=== PATIENT | female | born 1940 | race Caucasian/White ===

== ENCOUNTER 2018-11-12 10:22 | Emergency (ER) | payer OTHER, MEDICAID ==
[~2018-11-12] VITALS: Ht 162.6 cm; Wt 98.0 kg
[~2018-11-12 10:22] MED LIST: DIPH1TAB76; DONE10TA11; ESCI10TA; FESO4TAB; HYDR-3735; IBUP-1008; MECL25TA3; MONT10TA21; VALS1TAB33; [UNRECOGNIZED DRUG - CODE]
[2018-11-12] MEDS ORDERED: IPRATROPIUM BROMIDE (0.02%) 0.5MG/2.5ML NEB HHN STA (11:26)
[2018-11-12] MEDS ORDERED: METHYLPREDNISOLONE SOD SUCC 125 MG/2 ML VIAL IV STA (11:26)
[2018-11-12] MEDS ORDERED: ALBUTEROL (0.083%) 2.5MG/3ML NEB HHN STA (11:26)
[2018-11-12 11:52] LABS: BASOPHILS % 0.9 % (0.0-2.0); HEMATOCRIT. 39.1 % (36.0-48.0); HEMOGLOBIN. 12.6 g/dL (12.0-16.0); LYMPHOCYTES % 17.7 % (20.0-50.0); MEAN CORPUSCULAR HEMOGLOBIN 29.5 pg (28.0-32.0); MEAN CORPUSCULAR VOLUME 91.1 fL (81.0-99.0); MEAN PLATELET VOLUME 8.3 fl (7.4-10.4); MONOCYTES % 6.2 % (2.0-8.0); NEUTROPHILS % 70.2 % (40.0-76.0); PLATELET 553 x1000/uL (130-400); RED BLOOD CELL COUNT 4.29 mill/uL (4.2-5.4); RED CELL DISTRIBUTION WIDTH 13.2 % (11.6-14.6)
[2018-11-12 11:56] LABS: CHLORIDE 113 mEq/L (98-107)
[2018-11-12 12:00] LABS: ETHANOL BLOOD < 10 mg/dL
[2018-11-12] MEDS ORDERED: DIPHENHYDRAMINE 50MG/ML VIAL IV ONE (15:45)
[2018-11-12] MEDS ORDERED: DEXAMETHASONE 10 MG/ML VIAL IV ONE (15:45)
[2018-11-12] MEDS ORDERED: IOHEXOL-350 100 ML BOTTLE ONE (16:19)
[2018-11-12 18:08] VITALS: BP 167/70
== END 2018-11-12 18:12 | disposition home or self-care (01) ==
LOC: ER 10:26 → CANBEDREQ 21:07
DX: R06.02 Shortness of breath (principal); R05 Cough; R21 Rash and other nonspecific skin eruption; R32 Unspecified urinary incontinence; R79.89 Other specified abnormal findings of blood chemistry; I10 Essential (primary) hypertension; Z88.5 Allergy status to narcotic agent; Z79.899 Other long term (current) drug therapy
CPT/HCPCS: 36415; 71045; 71275; 80053; 80320; 83880; 84484; 85025; 85379; 93005; 93970; 94640; 96374; 96375; 99284; J1100; J1200; J2930; J7611; Q9967; G0480

== ENCOUNTER 2019-03-06 15:24 | Emergency (ER) | payer OTHER, MEDICAID ==
[~2019-03-06] VITALS: Ht 157.5 cm; Wt 100.0 kg
[2019-03-06] MEDS ORDERED: SODIUM CHLORIDE 0.9% 1,000 ML IV ONE (15:48)
[2019-03-06 16:06] LABS: CHLORIDE 109 mEq/L (98-107)
[2019-03-06 16:13] LABS: BASOPHILS % 0.5 % (0.0-2.0); EOSINOPHILS % 1.3 % (0.0-5.0); HEMATOCRIT. 38.2 % (36.0-48.0); HEMOGLOBIN. 12.6 g/dL (12.0-16.0); LYMPHOCYTES % 14.7 % (20.0-50.0); MEAN CORPUSCULAR HEMOGLOBIN 29.1 pg (28.0-32.0); MEAN CORPUSCULAR VOLUME 88.2 fL (81.0-99.0); MEAN PLATELET VOLUME 8.5 fl (7.4-10.4); MONOCYTES % 5.5 % (2.0-8.0); PLATELET 496 x1000/uL (130-400); RED BLOOD CELL COUNT 4.33 mill/uL (4.2-5.4); RED CELL DISTRIBUTION WIDTH 13.9 % (11.6-14.6)
[2019-03-06 16:36] LABS: D-DIMER 1.09 mg/L FEU (<0.50); PROTHROMBIN TIME 10.1 sec (9.6-11.0)
[2019-03-06] MEDS ORDERED: SODIUM CHLORIDE 0.9% 1000ML BAG (SEPSIS BOLUS) IV NR (17:00)
[2019-03-06] MEDS ORDERED: AZITHROMYCIN 500 MG in DEXT 5% WATER 250 ML IV NR (17:00)
[2019-03-06] MEDS ORDERED: CEFTRIAXONE 1 G PREMIX 50 ML IV NR (17:00)
[2019-03-06] MEDS ORDERED: IOHEXOL-350 100 ML BOTTLE ONE (17:28)
[2019-03-06 18:31] LABS: CLARITY URINE CLEAR (CLEAR); COLOR URINE YELLOW (YELLOW); KETONES URINE NEGATIVE (NEGATIVE); LEUKOCYTE ESTERASE URINE TRACE (NEGATIVE); NITRITE URINE NEGATIVE (NEGATIVE); OCCULT BLOOD URINE NEGATIVE (NEGATIVE); PH URINE 6.5 (4.5-8.0); PROTEIN URINE NEGATIVE (NEGATIVE); SPECIFIC GRAVITY URINE 1.062 (1.005-1.030); UROBILINOGEN URINE 0.2 E.U./dL (0.2-1.0)
[2019-03-06 18:51] VITALS: BP 205/104
[2019-03-06] MEDS ORDERED: CLONIDINE 0.1MG TABLET PO ONE ×2 (19:00→19:15)
== END 2019-03-06 19:53 | disposition short-term general hospital (02) ==
LOC: ER 15:24 → CANBEDREQ 19:55
DX: E86.0 Dehydration (principal); R73.9 Hyperglycemia, unspecified; N39.0 Urinary tract infection, site not specified; E87.2 Acidosis; I10 Essential (primary) hypertension; Z90.49 Acquired absence of other specified parts of digestive tract; Z98.890 Other specified postprocedural states; Z88.5 Allergy status to narcotic agent
CPT/HCPCS: 36415; 71045; 71275; 80053; 81003; 83605; 83690; 83880; 84484; 85025; 85379; 85610; 87040; 87086; 93005; 96361; 96365; 96368; 99285; J0456; J0696; J7030; J7060; Q9967